=== PATIENT | male | born 1940 | race Hispanic/Latino ===

== ENCOUNTER 2021-03-15 09:43 | Emergency (ER) | payer OTHER ==
[~2021-03-15] VITALS: Ht 172.7 cm; Wt 122.5 kg
[2021-03-15 11:16] LABS: BASOPHILS % (AUTO) 0.3 % (0.0-5.0); EOSINOPHILS % (AUTO) 2.2 % (0.0-8.0); HEMATOCRIT 43.6 % (42-54); LYMPHOCYTES % (AUTO) 20.3 % (21.0-51.0); MEAN CORPUSCULAR HEMOGLOBIN 31.3 pg (27.0-33.0); MEAN CORPUSCULAR VOLUME 94.8 fL (79-99); MONOCYTES % (AUTO) 12.7 % (3.0-13.0); NEUTROPHILS % (AUTO) 64.3 % (40.0-77.0); PLATELET COUNT (AUTO) 214 K/uL (130-400); WHITE BLOOD COUNT (AUTO) 5.8 K/uL (4.8-10.8)
[2021-03-15 11:22] LABS: CREATININE 1.2 mg/dL (0.5-1.5); POTASSIUM 4.2 mmol/L (3.5-5.1)
[2021-03-15 11:27] LABS: ALBUMIN 3.4 g/dL (3.5-5.0); BILIRUBIN,TOTAL 0.6 mg/dL (0.2-1.0); TOTAL PROTEIN, SERUM 6.8 g/dL (6.0-8.3)
[2021-03-15 11:30] LABS: INR 1.1 (0.85-1.15); PROTHROMBIN TIME 11.9 SEC (9.6-11.6)
[2021-03-15 11:31] LABS: PARTIAL THROMBOPLASTIN TIME 27.8 SEC (26.3-35.5)
[2021-03-15] MEDS ORDERED: IOHEXOL 350 MG/ML 100ML INFUS..BTL IV ONE (14:17)
[2021-03-15 16:02] VITALS: BP 151/78
== END 2021-03-15 16:03 | disposition home or self-care (01) ==
LOC: EDH 09:43
DX: I82.401 Acute embolism and thrombosis of unspecified deep veins of right lower extremity (principal); E11.9 Type 2 diabetes mellitus without complications; I10 Essential (primary) hypertension
CPT/HCPCS: 36415; 71275; 80053; 83605; 85025; 85378; 85610; 85730; 93970; 99285; Q9967